=== PATIENT | male | born 1970 | race Caucasian/White ===

== ENCOUNTER 2022-04-02 10:04 | Emergency (ER) | payer OTHER ==
[~2022-04-02] VITALS: Ht 175.3 cm; Wt 100.0 kg
[2022-04-02] MEDS ORDERED: LISI-892 PO (10:09)
[2022-04-02 10:27] LABS: COVID AG,FIA SOURCE NASOPHARYNGEAL
[2022-04-02 10:56] LABS: INFLUENZA TYPE A NEGATIVE FOR TYPE A (NEGATIVE); INFLUENZA TYPE B NEGATIVE FOR TYPE B (NEGATIVE)
[2022-04-02 11:14] LABS: RAPID GROUP A STREP NEGATIVE (NEGATIVE)
[2022-04-02 11:22] VITALS: BP 126/81
== END 2022-04-02 11:23 | disposition home or self-care (01) ==
LOC: EMS 10:04
DX: J02.9 Acute pharyngitis, unspecified (principal); F10.20 Alcohol dependence, uncomplicated; I10 Essential (primary) hypertension; Z20.822 Contact with and (suspected) exposure to COVID-19
CPT/HCPCS: 87430; 87804; 99282; Z7502